=== PATIENT | female | born 1970 | race Caucasian/White ===

== ENCOUNTER 2017-03-02 09:53 | Emergency (ER) | payer OTHER ==
[2017-03-02] MEDS ORDERED: BENADRYL 50 MG/ML IV ONE (10:35)
[2017-03-02] MEDS ORDERED: Sodium Chloride 0.9% 1000 ML 1,000 ML IV STA (10:35)
[2017-03-02] MEDS ORDERED: TORAdol 30 mg Injection IV ONE (10:35)
[2017-03-02] MEDS ORDERED: Reglan 10 MG/2 ML IV ONE (10:35)
--- NOTE | 2017-03-02 10:41 | ERPHSYRPT ---
- History of Present Illness Time Seen by Provider: 03/02/17 10:20 Source: patient Exam Limitations: no limitations Patient Subjective Stated Complaint: PT REPORTS HX OF MIGRAINE HEADACHES-STATES SHE IS OUT OF ONE OF HER MEDS-REPORTS HEADACHE FOR 7 DAYS-REPORTS VOMITED THIS AM Triage Nursing Assessment: PT PALE WARM ET [id number] ALL QUESTIONS CORRECTLY-MOVING TERRELL XTERMITIES WITH EASE-PT VOMITED DURING TRIAGE-STATES THAT SHE USUALLY GETS REGLAN BENADRYL ET TORADOL AT [facility] FOR HER MIGRAINES Physician History: 46 y/o female with history of migraine headaches comes to the ER with a 7 day history of left sided headache. Pt describes the pain as sharp, constant, 8/10 and not relieved by motrin. Pt admts to having 6 episodes of nausea with vomiting, unable to keep anything down and photophobia. Pt has run out of her propranolol. Pt mentions when the headache gets this bad, she usually receives benadryl, reglan and toradol. Timing/Duration: day(s) Quality: sharpness Head Pain Location: frontal Severity of Pain-Max: severe Severity of Pain-Current: severe Recent Head Trauma: occasional headaches Modifying Factors: Improves With: exposure to light, noise Associated Symptoms: nausea/vomiting Previous symptoms: same symptoms as today Allergies/Adverse Reactions: penicillin G Allergy (Intermediate, Verified 03/02/17 10:08) Sulfa (Sulfonamide Antibiotics) Allergy (Intermediate, Verified 03/02/17 10:08) Home Medications: Divalproex Sodium [Depakote ER] 250 mg PO DAILY 03/02/17 [History] Gabapentin 100 mg PO DAILY 03/02/17 [History] Valproic Acid [Depakene] 250 mg PO DAILY 03/02/17 [History] Venlafaxine HCl [Effexor] 25 mg PO DAILY 03/02/17 [History] Hx Tetanus, Diphtheria Vaccination/Date Given: No Hx Influenza Vaccination/Date Given: No Hx Pneumococcal Vaccination/Date Given: No Immunizations Up to Date: Yes - Review of Systems Constitutional: No Fever, No Chills Eyes: No Symptoms, Photophobia Ears, Nose, & Throat: No Symptoms Respiratory: No Cough, No Dyspnea Cardiac: No Chest Pain, No Edema, No Syncope Abdominal/Gastrointestinal: No Abdominal Pain, No Nausea, No Vomiting, No Diarrhea Genitourinary Symptoms: No Dysuria Musculoskeletal: No Symptoms, No Back Pain, No Neck Pain Skin: No Symptoms, No Rash Neurological: Headache, No Dizziness, No Focal Weakness, No Sensory Changes Psychological: No Symptoms Endocrine: No Symptoms All Other Systems: Reviewed and Negative - Past Medical History Pertinent Past Medical History: Yes Neurological History: Migraines Endocrine Medical History: Hyperthyroidism - Past Surgical History Past Surgical History: Yes Female Surgical History: Hysterectomy - Social History Smoking Status: Current every day smoker How long have you smoked: YRS Exposure to second hand smoke: Yes Drug Use: none Patient Lives Alone: No - Nursing Vital Signs Nursing Vital Signs: Initial Vital Signs Temperature 97.6 F 03/02/17 10:03 Pulse Rate 99 H 03/02/17 10:03 Respiratory Rate 20 03/02/17 10:03 Blood Pressure 177/85 03/02/17 10:03 O2 Sat by Pulse Oximetry 99 03/02/17 10:03 Pain Scale Pain Intensity 7 - Physical Exam General Appearance: moderate distress Eye Exam: PERRL/EOMI, photophobia Ears, Nose, Throat Exam: normal ENT inspection, moist mucous membranes Neck Exam: normal inspection, supple, full range of motion, No meningismus Respiratory Exam: normal breath sounds, lungs clear Cardiovascular Exam: regular rate/rhythm, normal heart sounds Gastrointestinal/Abdominal Exam: soft, No tenderness, No distention Back Exam: normal inspection, normal range of motion Extremity Exam: normal inspection, normal range of motion Mental Status Exam: alert, oriented x 3, 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 Exam: normal hearing, normal speech, PERRL, No facial droop Coordination/Gait Exam: normal finger to nose, normal gait, normal cerebellar function Motor/Sensory Exam: no motor deficit, no sensory deficit Skin Exam: normal color, warm, dry, No rash SpO2: 99 Oxygen Delivery: Room Air - Course Nursing assessment & vital signs reviewed: Yes Ordered Tests: Active Orders 24 hr Category Date Time Status IV Insertion STAT Care 03/02/17 10:35 Active BMP Stat Lab 03/02/17 10:25 Completed CBC W DIFF Stat Lab 03/02/17 10:25 Completed Medication Summary Discontinued Medications Generic Name Dose Route Start Last Admin Trade Name Freq PRN Reason Stop Dose Admin Diphenhydramine HCl 25 mg 03/02/17 10:35 03/02/17 10:54 Benadryl 50 Mg/Ml IV 03/02/17 10:36 25 mg STAT ONE Administration Diphenhydramine HCl Confirm 03/02/17 10:47 Benadryl 50 Mg/Ml Administered 03/02/17 10:48 Dose 50 mg .ROUTE .STK-MED ONE Sodium Chloride 1,000 mls @ 999 mls/hr 03/02/17 10:35 03/02/17 10:50 Sodium Chloride 0.9% 1000 Ml IV 03/02/17 11:35 999 mls/hr .Q1H1M STA Administration Sodium Chloride Confirm 03/02/17 10:47 Sodium Chloride 0.9% 1000 Ml Administered 03/02/17 10:48 Dose 1,000 mls @ ud .ROUTE .STK-MED ONE Ketorolac Tromethamine 30 mg 03/02/17 10:35 03/02/17 10:55 Toradol 30 Mg Injection IV 03/02/17 10:36 30 mg STAT ONE Administration Ketorolac Tromethamine Confirm 03/02/17 10:47 Toradol 30 Mg Injection Administered 03/02/17 10:48 Dose 30 mg .ROUTE .STK-MED ONE Metoclopramide HCl 10 mg 03/02/17 10:35 03/02/17 10:52 Reglan 10 Mg/2 Ml IV 03/02/17 10:36 10 mg STAT ONE Administration Metoclopramide HCl Confirm 03/02/17 10:47 Reglan 10 Mg/2 Ml Administered 03/02/17 10:48 Dose 10 mg .ROUTE .STK-MED ONE Lab/Rad Data: Laboratory Result Diagrams 03/02/17 10:25 03/02/17 10:25 Laboratory Results 03/02/17 03/02/17 Range/Units 10:25 10:25 WBC 5.0 (4.0-10.5) K/mm3 RBC 4.80 (4.1-5.4) M/mm3 Hgb 15.0 (12.0-16.0) gm/dl Hct 44.2 (35-47) % MCV 92.1 (78-100) fl MCH 31.3 (26-32) pg MCHC 33.9 (32-36) g/dl RDW 12.6 (11.5-14.0) % Plt Count 165 (150-450) K/mm3 MPV 11.8 H (6-9.5) fl Gran % 53.7 (36.0-66.0) % Lymphocytes % 28.9 (24.0-44.0) % Monocytes % 10.4 (0.0-12.0) % Eosinophils % 6.4 H (0.00-5.0) % Basophils % 0.6 (0.0-0.4) % Basophils # 0.03 (0-0.4) Sodium 137 (136-145) mEq/L Potassium 4.1 (3.5-5.1) mEq/L Chloride 104 (98-107) mEq/L Carbon Dioxide 28.8 (21-32) mEq/L Anion Gap 8.3 (5-15) MEQ/L BUN 26 H (9-20) mg/dL Creatinine 1.01 (0.55-1.30) mg/dl Estimated GFR > 60 ML/MIN Glucose 95 (70-110) MG/DL Calcium 10.8 H (8.5-10.1) mg/dL - Progress Progress: improved Progress Note: 03/02/17 11:51 Pt feels better after receiving toradol, benadryl and reglan. Pt will F/U with her PCP in the next few days. - Departure Time of Disposition: 11:52 Departure Disposition: Home Clinical Impression: Migraine headache Qualifiers: Migraine type: without aura Status migrainosus presence: without status migrainosus Intractability: not intractable Qualified Code(s): G43.009 - Migraine without aura, not intractable, without status migrainosus Condition: Stable Critical Care Time: No Referrals: DARREL FLORES MD [Primary Care Provider] - Instructions: Migraine Additional Instructions: Follow up with your primary care doctor in the next few days for any further recommendations for your migraine headaches.
[2017-03-02] MEDS ORDERED: TORAdol 30 mg Injection ONE (10:47)
[2017-03-02] MEDS ORDERED: BENADRYL 50 MG/ML ONE (10:47)
[2017-03-02] MEDS ORDERED: Reglan 10 MG/2 ML ONE (10:47)
[2017-03-02] MEDS ORDERED: Sodium Chloride 0.9% 1000 ML 1,000 ML ONE (10:47)
[2017-03-02 10:55] LABS: BASOPHIL % 0.6 % (0.0-0.4); Eosinophil % 6.4 % (0.00-5.0); Granulocytes % 53.7 % (36.0-66.0); Lymphocytes % 28.9 % (24.0-44.0); Mean Cell Volume 92.1 fl (78-100); Mean Corpuscular Hemoglobin 31.3 pg (26-32); Mean Platelet Volume 11.8 fl (6-9.5); Monocytes % 10.4 % (0.0-12.0); Platelet Count 165 K/mm3 (150-450); Red Cell Distribution Width 12.6 % (11.5-14.0)
[2017-03-02 11:08] LABS: ANION GAP 8.3 MEQ/L (5-15); BLOOD UREA NITROGEN 26 mg/dL (9-20); CHLORIDE 104 mEq/L (98-107); Carbon Dioxide 28.8 mEq/L (21-32); Glucose 95 MG/DL (70-110); Potassium 4.1 mEq/L (3.5-5.1); SODIUM 137 mEq/L (136-145)
[2017-03-02 12:15] VITALS: BP 121/66; PULSE 60; O2SAT 96
== END 2017-03-02 12:16 | disposition home or self-care (01) ==
LOC: ED 09:53
DX: G43.009 Migraine without aura, not intractable, without status migrainosus (principal)
CPT/HCPCS: 36000; 36415; 80048; 85025; 96360; 96374; 96375; 99284; J1200; J1885